=== PATIENT | male | born 1995 | race Caucasian/White ===

== ENCOUNTER 2018-11-02 21:20 | Emergency (ER) | payer BC ==
[2018-11-02] MEDS ORDERED: Albuterol/Ipratropium NEB.SOL* Albuterol 2.5 MG/Ipratropium 0.5 MG 3 ML INH ONE ×2 (21:33→22:24)
[2018-11-02] MEDS ORDERED: methylPREDNISolone 125 MG* 2 ML VIAL IV ONE (21:34)
[2018-11-02 21:56] LABS: Hematocrit 44 % (42-52); Hemoglobin 14.7 g/dl (14.0-18.0); Mean Corpuscular HGB Conc 33 g/dl (31-36); Mean Corpuscular Hemoglobin 27 pg (27-31); Mean Corpuscular Volume 81 fL (80-94); Mean Platelet Volume 9.7 fL (7.4-10.4); Platelet Count 238 10^3/ul (150-450); Red Blood Count 5.42 10^6/ul (4.00-5.40); Red Cell Distribution Width 15 % (10.5-15); White Blood Count 13.1 10^3/ul (3.5-10.8)
--- NOTE | 2018-11-02 22:03 | ED ---
Respiratory - HPI Summary HPI Summary: 23-year-old male presents with shortness of breath today. He was diagnosed with bronchitis 3 days ago and has been taking prednisone and inhaler. He states that today he took inhaler but was not able to control shortness breath. Denies any chest pain. Denies any bowel pain. No nausea or vomiting. He admits to sore throat and sinus congestion. He denies any known fever. he has a history of asthma. - History of Current Complaint Chief Complaint: EDShortnessOfBreath Stated Complaint: SEVERE SOB PER MOTHER Time Seen by Provider: 11/02/18 21:29 Pain Intensity: 6 Sputum Amount: None - Allergy/Home Medications Allergies/Adverse Reactions: Allergies Allergy/AdvReac Type Severity Reaction Status Date / Time No Known Allergies Allergy Verified 11/02/18 21:27 Home Medications: Home Medications Albuterol Sulfate [Albuterol Sulfate Hfa] 1 puff INH Q4H 11/02/18 [History Confirmed 11/02/18] predniSONE TAB* [Deltasone 10 MG TAB*] 40 mg PO DAILY 11/02/18 [History Confirmed 11/02/18] PMH/Surg Hx/FS Hx/Imm Hx Endocrine/Hematology History: Denies: Hx Anticoagulant Therapy Respiratory History: Reports: Hx Asthma, Hx Chronic Obstructive Pulmonary Disease (COPD) - Immunization History Date of Tetanus Vaccine: utd Date of Influenza Vaccine: none Infectious Disease History: No Infectious Disease History: Denies: Traveled Outside the [place] in Last 30 Days - Family History Known Family History: Positive: Non-Contributory - Social History Alcohol Use: Occasionally Substance Use Type: Reports: None Smoking Status (MU): Never Smoked Tobacco Review of Systems Negative: Fever Negative: Chest Pain Positive: Shortness Of Breath, Cough Negative: Abdominal Pain All Other Systems Reviewed And Are Negative: Yes Physical Exam Triage Information Reviewed: Yes Vital Signs On Initial Exam: Initial Vitals Temp Pulse Resp BP Pulse Ox 98.6 F 128 20 143/83 94 11/02/18 21:23 11/02/18 21:23 11/02/18 21:23 11/02/18 21:23 11/02/18 21:23 Vital Signs Reviewed: Yes Appearance: Positive: Well-Appearing Skin: Positive: Warm, Dry Head/Face: Positive: Normal Head/Face Inspection Eyes: Positive: Normal, EOMI, RAKESH, Conjunctiva Clear ENT: Positive: Normal ENT inspection, Pharynx normal, TMs normal Neck: Positive: Supple, Nontender, No Lymphadenopathy Respiratory/Lung Sounds: Positive: Decreased Breath Sounds, Wheezes Cardiovascular: Positive: Normal, RRR Abdomen Description: Positive: Nontender, Soft Bowel Sounds: Positive: Present Musculoskeletal: Positive: Normal Neurological: Positive: Normal Psychiatric: Positive: Normal Diagnostics - Vital Signs Vital Signs Temp Pulse Resp BP Pulse Ox 11/02/18 21:41 125 20 98 11/02/18 21:23 98.6 F 128 20 143/83 94 - Laboratory Lab Results: Lab Results 11/02/18 Range/Units 21:49 WBC 13.1 H (3.5-10.8) 10^3/ul RBC 5.42 H (4.00-5.40) 10^6/ul Hgb 14.7 (14.0-18.0) g/dl Hct 44 (42-52) % MCV 81 (80-94) fL MCH 27 (27-31) pg MCHC 33 (31-36) g/dl RDW 15 (10.5-15) % Plt Count 238 (150-450) 10^3/ul MPV 9.7 (7.4-10.4) fL Neut % (Auto) Pending Lymph % (Auto) Pending Mclean % (Auto) Pending Eos % (Auto) Pending Baso % (Auto) Pending Absolute Neuts (auto) Pending Absolute Lymphs (auto) Pending Absolute Monos (auto) Pending Absolute Eos (auto) Pending Absolute Basos (auto) Pending Absolute Nucleated RBC Pending Nucleated RBC % Pending Result Diagrams: 11/02/18 21:49 11/02/18 21:49 Lab Statement: Any lab studies that have been ordered have been reviewed, and results considered in the medical decision making process. - Radiology chest Radiology Interpretation Completed By: ED Physician Summary of Radiographic Findings: pneumonia - EKG No standard instances Cardiac Rate: Tachycardia EKG Rhythm: Sinus Tachycardia Summary of EKG Findings: sinus tachycardia Re-Evaluation - Re-Evaluation First Eval Re-Evaluation Time: 22:02 Change: Improved Comment: still wheezing Second Eval Re-Evaluation Time: 23:10 Change: Improved Comment: feeling less SOB Third Eval Re-Evaluation Time: 01:17 Comment: ambulated to bathroom wihtout difficulty. wants to go home Disposition - Course Course Of Treatment: 23-year-old male presents with shortness of breath today. He was diagnosed with bronchitis 3 days ago and has been taking prednisone and inhaler. He states that today he took inhaler but was not able to control shortness breath. Denies any chest pain. Denies any bowel pain. No nausea or vomiting. He admits to sore throat and sinus congestion. He denies any known fever. He has hx of asthma or copd. On exam diffuse wheezing noted. is breathing very shallow. Is tachycardic. White blood count 13. CRP elevated. gave breathing treatment and feeling breathing better. gave solu-medrol and mg and sob resolved. chest xray read by me as pneumonia. gave dose of rocephin and azithromycin. discussed admission vs discharge and patient would like to go home. placed on azithromycin. warned if sob returns to return to ED. patient understand and agrees with plan. - Differential Dx - Cardiopulmonary Differential Diagnoses - Cardiopulmonary: Bronchitis, Influenza, Lower Resp Infection - Diagnoses Provider Diagnoses: Shortness of breath, Pneumonia Discharge - Sign-Out/Discharge Documenting (check all that apply): Patient Departure Patient Received Moderate/Deep Sedation with Procedure: No - Discharge Plan Condition: Good Disposition: HOME Prescriptions: Azithromycin TAB* [Zithromax TAB (Z-MYLES) 250 mg #6 tabs] 250 mg PO DAILY #4 tab Patient Education Materials: Pneumonia (ED) Forms: *Work Release Referrals: Bernardo Fan MD [Primary Care Provider] - Additional Instructions: Use inhaler up to two puffs every 4 hours for cough and wheezing finish steroid Take antibiotic once daily starting tomorrow for 4 days Take Tylenol or ibuprofen for pain every 6 hours Follow up with primary within 5 days Return to ED if develop severe shortness of breath, worsening chest pain, or any new or worsening symptoms - Billing Disposition and Condition Condition: GOOD Disposition: Home
[2018-11-02] MEDS ORDERED: Magnesium Sulfate 2 GM IV* 2 GM/50 ML BAG IVPB ONE (22:04)
[2018-11-02 22:17] LABS: ABS Basophils 0.1 10^3/ul (0-0.2); ABS Eosinophils 0 10^3/ul (0-0.6); ABS Lymphocytes 1.5 10^3/ul (1.0-4.8); ABS Neutrophils 9.5 10^3/ul (1.5-7.7); ABS Nucleated RBC 0 10^3/ul; Eosinophil % 0 %; Lymphocyte % 11.8 %; Nucleated Red Blood Cells % 0
[2018-11-02 22:36] LABS: Albumin 4.4 g/dL (3.2-5.2); Calcium 9.2 mg/dL (8.6-10.3); Magnesium 1.9 mg/dL (1.9-2.7); Total Bilirubin 0.6 mg/dL (0.2-1.0)
[2018-11-02 22:42] LABS: Albumin/Globulin Ratio 1.3 (1-3); BUN/Creatinine Ratio 11.4 (8-20); C Reactive Protein 88.46 mg/L (<8.01); EGFR African American 96.3 (>60); EGFR Non-African American 79.6 (>60); Globulin 3.3 g/dL (2-4); Total Protein 7.7 g/dL (6.4-8.9)
[2018-11-02] MEDS ORDERED: cefTRIAXone(*) 1 GM in NS 0.9% 50 ML* 50 ML IVPB ONE (23:07)
[2018-11-03] MEDS ORDERED: NS 0.9% 1000 ML** 1,000 ML IV ONE (00:11)
[2018-11-03] MEDS ORDERED: Azithromycin TAB* 250 MG PO ONE (01:18)
[2018-11-03 01:33] VITALS: BP 111/68
--- NOTE | 2018-11-03 08:07 | PN ---
Progress Note - Progress Note Date of Service: 11/03/18 Note: Patient was called at 8:05am. PNA with a likely 1.3cm nodule Discussed with patient and told to follow up in 2-3 days for resolution.
== END 2018-11-03 01:34 | disposition home or self-care (01) ==
LOC: ED 21:20
DX: J18.9 Pneumonia, unspecified organism (principal); R00.0 Tachycardia, unspecified; R06.02 Shortness of breath; R05 Cough
CPT/HCPCS: 36415; 71046; 80053; 83605; 83735; 83880; 84484; 85025; 85379; 86140; 93005; 96361; 96365; 96375; 99283; A9270-GY; J0696; J2930; J3475